=== PATIENT | female | born 1950 | race Caucasian/White ===

== ENCOUNTER 2023-09-18 10:33 | Emergency (ER) | payer OTHER, MEDICARE, SELFPAY ==
[2023-09-18 10:58] VITALS: BP 165/61
--- NOTE | 2023-09-18 12:34 | ED.GENMED ---
History of Present Illness
General
Chief Complaint: Back Pain
Source: patient and spouse
Exam Limitations: none
Time Seen by Provider: 09/18/23 12:03
Nursing documentation reviewed up to this point in time: agreed with
Travel History
Have you had any contact with someone who has COVID-19?: No
Do you have any symptoms of coronavirus? Fever > 100 degrees, chills, cough, shortness of breath, sore throat, loss of taste or smell, muscle aches, or headache?: No
History of Present Illness
History of Present Illness:
73-year-old female with past medical history of hypertension hyperlipidemia diabetes hypothyroidism presenting to the emergency department today with concerns of mainly back discomfort and mild posterior headache after a syncopal episode yesterday
where she stood up very quickly after her fell at home. She normally does not stand up quickly because she does get very lightheaded when she stands up quickly secondary to her medications. She hit her back and the back of her head she
otherwise feels well in that regard but does have ongoing back pain. Denies numbness weakness changes in urination or bowel movements.
Review of Systems
Review of Systems
Allergies reviewed?: Yes
All Other Systems: ROS reviewed and negative except as documented in HPI and ROS
Phy Exam
Physical Exam
Physical Exam:
GENERAL: Alert , in no apparent distress
EYE: pupils equal and reactive
NECK: Supple, no significant adenopathy.
ENT: o/p clr, mmm.
CARDIAC: Regular rate and rhythm .
LUNGS: Clear breath sounds bilaterally, no acute respiratory distress, no wheezes/rales/rhonchi
ABDOMEN: Soft, without focal tenderness, no r/g, no cvat
NEUROLOGICAL: Alert and oriented, no focal neuro deficits
SKIN: Warm and dry, skin intact.
MUSCULOSKELETAL: Mild pain to the right lumbar paraspinal muscles no midline pain no edema, well perfused.
PSYCH: Normal and appropriate interaction.
Course
Orders/Labs/Results
Orders:
Orders
09/18/23 12:23
EKG [Electrocardiogram (*1)] Urgent
Reason for Study: Fatigue / Weakness
CT Head W/o Iv Contrast Urgent
Comment:
Reason For Exam: fall hit head loc
CR Foot - Left Min 3 Views Urgent
Comment:
Reason For Exam: 3-5 toe pain
Lumbar Spine, 2 or 3 View [CR Lumbar Spine 2 Or 3 Views] Urgent
Comment:
Reason For Exam: low back pain
09/18/23 12:24
EKG- Treatment ONCE
09/18/23 12:30
BMP [Basic Metabolic Panel] Urgent
CBC/With Diff [Complete Blood Count/With Diff] Urgent
Urinalysis Reflex To Culture Urgent
Date Specimen was Collected: 09/18/23
Time Specimen was Collected: 12:29
Urine Microscopic Reflex Cult Urgent
09/18/23 13:50
Acetaminophen [Tylenol] 1,000 mg PO NOW STA
Ketorolac [Toradol] 15 mg IV NOW STA
Abnormal Lab Results
09/18/23
12:30
RBC 3.64 L 10^6/uL
(4.20-5.40)
Hct 33.6 L %
(37.0-47.0)
MCH 33.0 H pg
(27.0-31.0)
MPV 11.7 H fL
(7.4-10.4)
Abs Immat Gran (auto) 0.1 H 10^3/uL
(0-0.05)
Absolute Neuts (auto) 8.3 H 10^3/uL
(1.4-6.5)
Absolute Lymphs (auto) 0.9 L 10^3/uL
(1.2-3.4)
Neutrophils % 86.1 H %
(42.2-75.2)
Lymphocytes % 8.8 L %
(20.5-51.1)
Sodium 132 L mmol/L
(135-145)
BUN 27 H mg/dl
(7-17)
Glucose 299 H mg/dl
(70-99)
Leukocyte Esterase Rfl Trace A
(Negative)
Urine Bacteria (Reflex) Few A
(Negative)
Urine Glucose 3+ A
(Negative)
09/18/23 12:30
09/18/23 12:30
Vital Signs
Initial and Last Documented VS:
Initial Vital Signs
Temp Pulse Resp BP Pulse Ox
98.5 F 68 18 165/61 100
09/18/23 10:58 09/18/23 10:58 09/18/23 10:58 09/18/23 10:58 09/18/23 10:58
Last Documented Vital Signs
Temp Pulse Resp BP Pulse Ox
98.5 F 68 18 165/61 100
09/18/23 10:58 09/18/23 10:58 09/18/23 10:58 09/18/23 10:58 09/18/23 10:58
MDM/Problems Addressed
MDM/Problems Addressed:
73-year-old female presenting to the emergency department today with concerns after syncopal episode yesterday where she stood up very quickly and felt lightheaded and passed out she does get this regularly and usually does not stand up this was
immediately after her fell. She is on blood thinners does have some ongoing mild posterior headache and low back pain. Concerning this imaging ordered of the head and back otherwise normal neurologic evaluation no change in bowel or
bladder no abdominal pain no flank pain no CVA tenderness. 30% compression of T12 patient does not have specific discomfort to this area stable for outpatient management of this. Otherwise no significant blood in patient's urine very unlikely to
have a renal injury. Sugar level is elevated but no signs of DKA. Patient was advised of this and will follow-up closely as an outpatient. Otherwise stable for discharge.
*Critical Care Note
Total Time (30-74mins, 75-104mins- exclusive of procedures): Not Applicable
ED Attending Note
-
Portions of this chart may have been created with voice recognition software.� Occasional wrong word or��sound alike� substitutions may have occurred due to the inherent limitations of voice recognition software.
Discharge Plan
Departure
Patient Disposition: Home (Routine Discharge)
Date of Disposition: 09/18/23
Time of Disposition: 14:39
Patient with high blood pressure during this ER visit?: No
Condition: Good
Covid-19: Not Applicable
Discharge Problem:
Syncope, Hyperglycemia, Compression of thoracic vertebra
Instructions: Syncope (Fainting) (DC)
Referrals:
Marin Gonsales MD [Family Provider] -
Activity Restrictions/Additional Instructions:
You came to the emergency department today after a fall. Here you had reassuring evaluation. Please follow closely as an outpatient. Your sugar level was elevated. Please keep a close eye on this moving forward and have a low carbohydrate diet.
Return to the emergency department any worsening, new or concerning symptoms.
Interventions
Interventions:
*Risk Screen - Suicide Last Done: 09/18/23 11:01
*General Assessment Last Done: 09/18/23 11:01
*Neglect/Abuse Screening Last Done: 09/18/23 11:01
ED- Fall Risk Assessment Last Done: 09/18/23 11:48
*ED COVID-19 Vaccine History Last Done: 09/18/23 11:48
ED- Cardiac Assessment Last Done: 09/18/23 11:48
ED-Musculoskeletal Assessment Last Done: 09/18/23 11:48
ED- Neurological Assessment Last Done: 09/18/23 11:48
ED-Skin Assessment Last Done: 09/18/23 11:48
Discharge Date and Time
Print Language: SAMI
[2023-09-18 12:50] LABS: % Basophils 0.1 % (0-2); % Eosinophils 0.1 % (0-6); % Immature Granulocytes 0.5 % (0-0.5); % Lymphocytes 8.8 % (20.5-51.1); % Monocytes 4.4 % (1.7-9.3); % Neutrophils 86.1 % (42.2-75.2); Absolute Immature Granulocytes 0.1 10^3/uL (0-0.05); Absolute Lymphocytes 0.9 10^3/uL (1.2-3.4); Absolute Monocytes 0.4 10^3/uL (0.1-0.6); Absolute Neutrophils 8.3 10^3/uL (1.4-6.5); Hematocrit 33.6 % (37.0-47.0); Mean Corp Hgb Conc. 35.7 g/dL (33.0-37.0); Mean Corpuscular Volume 92.3 fL (81.0-99.0); Mean Platelet Volume 11.7 fL (7.4-10.4); Nucleated Red Blood Cells % 0 %; Platelet Count 153 10^3/uL (130-400); Red Blood Cell Count 3.64 10^6/uL (4.20-5.40); Red Cell Dist. Width 13.8 % (11.5-14.5); White Blood Cell Count 9.7 10^3/uL (4.8-10.8)
[2023-09-18 13:14] LABS: Urine Albumin Negative (Neg - Trace); Urine Bilirubin Negative (Negative); Urine Character Clear (Clear); Urine Color Yellow; Urine Glucose 3+ (Negative); Urine Ketone Negative (Negative); Urine Leukocyte Trace (Negative); Urine Nitrite Negative (Negative); Urine Occult Blood Negative (Negative); Urine Specific Gravity 1.005 (<1.030); Urine Urobilinogen Negative (Neg - 1+)
[2023-09-18 13:17] LABS: Blood Urea Nitrogen 27 mg/dl (7-17); Calcium 9.5 mg/dl (8.4-10.2); Carbon Dioxide 26 mmol/L (22-30); Chloride 103 mmol/L (98-107); Glucose 299 mg/dl (70-99); Sodium 132 mmol/L (135-145); eGFR > 60.00
[2023-09-18 13:59] LABS: Urine Bacteria Few (Negative); Urine Squamous Cell 0-2 /LPF (Few); Urine White Cell 0-2 /HPF (0-5)
[2023-09-18] MEDS: TYLENOL 1000 MG PO (14:03)
[2023-09-18] MEDS: TORADOL 15 MG IV (14:03)
[2023-09-18 14:49] VITALS: BP 133/76
== END 2023-09-18 15:06 | disposition home or self-care (01) ==
LOC: EMR 10:33
PROVIDERS: Physician Assistant; EMERGENCY PHYSICIAN Emergency Medicine; FAMILY PHYSICIAN Internal Medicine
DX: R55 Syncope and collapse (principal); E11.65 Type 2 diabetes mellitus with hyperglycemia; M48.54XA Collapsed vertebra, not elsewhere classified, thoracic region, initial encounter for fracture
CPT/HCPCS: 99285; 96374; 70450; 72100; 73630; 80048; 81003; 81015; 85025; 93005

== ENCOUNTER 2025-03-14 02:48 | Emergency (ER) | payer OTHER, SELFPAY ==
[2025-03-14 02:50] VITALS: BP 181/80
[2025-03-14 02:51] VITALS: BP 182/80
[2025-03-14 03:29] VITALS: BP 138/48
--- NOTE | 2025-03-14 03:40 | ED.GENMED ---
History of Present Illness
General
Chief Complaint: Nose Bleed
Source: patient
Exam Limitations: none
Time Seen by Provider: 03/14/25 02:54
Nursing documentation reviewed up to this point in time: agreed with
History of Present Illness
History of Present Illness:
74-year-old female with past medical history of hypertension, hyperlipidemia, diabetes, hypothyroidism, who presents to the ER today with concerns of acute bleeding from her right nare. She reports that this started shortly upon awakening. She
reports that her is sick with multiple medical issues and she was waking up to go check on him when the nose bleeding started spontaneously. She denies trauma to the area. She reports a few days ago, she had a nosebleed that stopped
spontaneously. She has never required cautery or any procedures for nose bleeding in the past. She denies any falls or head trauma. She denies any lightheadedness or dizziness. She denies any syncopal episodes. She does not take any
anticoagulant medications. Patient reports that the bleeding was so brisk that she called the EMS.
Review of Systems
Review of Systems
All Other Systems: ROS reviewed and negative except as documented in HPI and ROS
Phy Exam
Physical Exam
Physical Exam:
General: Patient is well appearing and in no acute distress; non-toxic.. Vital signs are stable.
Skin: Warm and dry, no rashes or lesions
Head: Normocephalic, atraumatic
Eyes: Sclera non-icteric. EOMs intact.
Cardiac: Regular rate and rhythm, no murmurs
Mouth: Dried blood noted around the oropharynx, no blood in the posterior oropharynx
Nose: Brisk bleeding noted from right anterior nare, minimal bleeding from the left nare, no septal hematoma
Peripheral Vascular: No lower extremity swelling or edema
Pulm: Normal respiratory effort
Neuro: CN II-XII intact, no focal neurologic deficits.
Psychiatric: Appropriate mood and affect.
Course
Vital Signs
Initial and Last Documented VS:
Initial Vital Signs
BP
181/80
03/14/25 02:50
Last Documented Vital Signs
Pulse Resp BP Pulse Ox
82 20 138/48 98
03/14/25 02:51 03/14/25 02:51 03/14/25 03:29 03/14/25 03:40
MDM/Problems Addressed
Differential Diagnosis Includes:
Differentials include anterior epistaxis, posterior epistaxis, abrasion, rhinosinusitis
MDM/Problems Addressed:
74-year-old female presents to the ER today with concerns of bleeding from bilateral nares. It started on the right side and progressed to the left side. Initially, bleeding was controlled with nasal epinephrine and pressure. Bleeding did
continue on reassessment so merocel packing was placed. Patient was observed for extended period of time with no evidence of rebleeding. Patient stable for discharge. Discussed follow-up with ENT and packing removal. Patient stable for discharge.
TSS prophylaxis
*Pulse Oximetry
SaO2: 98
Oxygen Mode of Delivery: Room air
Patient hypoxic: no
*Critical Care Note
Total Time (30-74mins, 75-104mins- exclusive of procedures): Not Applicable
Update Note
Update Note:
4:15 am-- Bleeding remains controlled, patient feeling well. Will continue to observe.
5:15 am-- No bleeding present, patient feeling well, stable for discharge
ED Attending Note
-
Portions of this chart may have been created with voice recognition software.� Occasional wrong word or��sound alike� substitutions may have occurred due to the inherent limitations of voice recognition software.
Discharge Plan
Departure
Patient Disposition: Home (Routine Discharge)
Date of Disposition: 03/14/25
Time of Disposition: 05:19
Patient with high blood pressure during this ER visit?: Yes
Condition: Good
Discharge Problem:
Acute anterior epistaxis
Instructions: Nosebleeds (DC), BLOOD PRESSURE
Prescriptions:
New
cephalexin 250 mg capsule
250 mg PO BID 3 Days Qty: 6 0RF
Referrals:
MARYAM POTTER DO [Family Provider]
Pio Eden MD [Active, Otology] - Call in 1-3 days for appt
Activity Restrictions/Additional Instructions:
Keflex, an antibiotic, has been sent to your pharmacy. Please take one tablet 3 times daily for 3 days.
Please call the attached number to schedule an appointment for follow up with ENT for packing removal 24-48 hours
PLEASE RETURN TO THE ER SHOULD YOU DEVELOP A RETURN OF YOUR BLEEDING, CHEST PAIN, SHORTNESS OF BREATH, VOMITING BLOOD, LIGHTHEADEDNESS, DIZZINESS, LOSS OF CONSCIOUSNESS, OR ANY OTHER SIGNS OR SYMPTOMS WORRISOME TO YOU.
Interventions
Interventions:
*Risk Screen - Suicide Last Done: 03/14/25 02:54
*General Assessment Last Done: 03/14/25 02:54
*Neglect/Abuse Screening Last Done: 03/14/25 02:54
*Nursing Disposition Last Done: 03/14/25 06:16
ED-EENT Assessment Last Done: 03/14/25 03:00
Discharge Date and Time
Discharge Date/Time: 03/14/25 06:17
Print Language: FAROESE
== END 2025-03-14 06:17 | disposition home or self-care (01) ==
LOC: EMR 02:48
PROVIDERS: EMERGENCY PHYSICIAN Student in an Organized Health Care Education/Training Program; FAMILY PHYSICIAN Student in an Organized Health Care Education/Training Program
DX: R04.0 Epistaxis (principal); E11.9 Type 2 diabetes mellitus without complications; I10 Essential (primary) hypertension; E78.5 Hyperlipidemia, unspecified; E03.9 Hypothyroidism, unspecified; Z79.84 Long term (current) use of oral hypoglycemic drugs
CPT/HCPCS: 30901; 99283

== ENCOUNTER 2025-03-14 08:00 | Emergency (ER) | payer OTHER, SELFPAY ==
[2025-03-14 08:00] VITALS: BMI 23.2
[2025-03-14 08:08] VITALS: BP 130/82
--- NOTE | 2025-03-14 08:45 | ED.GENMED ---
History of Present Illness
General
Chief Complaint: Nose Bleed
Source: patient
Exam Limitations: none
Time Seen by Provider: 03/14/25 08:09
Nursing documentation reviewed up to this point in time: agreed with
History of Present Illness
History of Present Illness:
74 yo female, not anticoagulated, DC'd from this ER at 6:15 a.m. (2 hours ago) today and by the time she got home nose was bleeding through both packings, right greater than left nostril. Denies dizziness, CP.
Past History
Past History
ED Past Medical History: HTN, Hypercholesterolemia, NIDDM, Hypothyroidism and Other (pernicious anemia)
ED Past Surgical History: and Orthopedic
Social History
Tobacco: Non-smoker
Alcohol: None
Personal:
Living: with family
Review of Systems
Review of Systems
Allergies reviewed?: Yes
All Other Systems: ROS reviewed and negative except as documented in HPI and ROS
EENT: Reports other (recurrent nose bleed)
Phy Exam
Physical Exam
Physical Exam:
GENERAL: No acute distress. A&Ox3.
CONSTITUTIONAL: Afebrile.
EYES: clear, conjunctivae normal
ENMT: moist mucus membranes, Pharynx nl, blew nose of large amounts of clots, then minimal bleeding. Active bleeding mid to posterior right nasal passage, no active bleeding left nasal passage.
RESPIRATORY: Regular respirations, nonlabored, lungs clear.
CARDIOVASCULAR: Regular rate and rhythm, no murmurs, no rubs.
MUSCULOSKELETAL: Moves with ease. Well perfused.
SKIN: Warm, dry, pink
PSYCH: Normal mood and affect. Well kept, interactive and appropriate
NEUROLOGIC: Awake, alert and oriented. No focal neurological deficits
Course
Vital Signs
Initial and Last Documented VS:
Initial Vital Signs
Temp Pulse Resp BP Pulse Ox
98.4 F 78 18 130/82 98
03/14/25 08:08 03/14/25 08:08 03/14/25 08:08 03/14/25 08:08 03/14/25 08:08
Last Documented Vital Signs
Temp Pulse Resp BP Pulse Ox
98.4 F 78 18 130/82 98
03/14/25 08:08 03/14/25 08:08 03/14/25 08:08 03/14/25 08:08 03/14/25 08:47
Procedures
Nosebleed
Drug treatment: Lidocaine and Epinephrine
Treatment: other (7.5 cm anterior-posterior Epistat with 6 ml air with pt stating pressure but no pain and is comfortable.)
Additional information:
after right nasal passage packed, no further bleeding from left nostril. No bleeding in posterior pharynx.
MDM/Problems Addressed
MDM/Problems Addressed:
74 yo female, not anticoagulated, DC'd from this ER at 6:15 a.m. (2 hours ago) today and by the time she got home nose was bleeding through both packings, right greater than left nostril. Denies dizziness, CP.
Nasal packing applied with good hemostasis, pt tolerated procedure well. Expresses there is no discomfort, just 'pressure' and 'not bad.'
No bleeding from right nostril, no need for packing (previous significant bleeding from right nostril most likely travelled posteriorly to the left nostril).
Daughter called Dr. Eden's office from bedside and made follow-up appointment
9:45 a.m.
No further bleeding
Patient is stable for discharge.
Discharged to care of daughter.
*Pulse Oximetry
SaO2: 98
Oxygen Mode of Delivery: Room air
Patient hypoxic: no
*Critical Care Note
Total Time (30-74mins, 75-104mins- exclusive of procedures): Not Applicable
ED Attending Note
-
Portions of this chart may have been created with voice recognition software.� Occasional wrong word or��sound alike� substitutions may have occurred due to the inherent limitations of voice recognition software.
Discharge Plan
Departure
Patient Disposition: Home (Routine Discharge)
Date of Disposition: 03/14/25
Time of Disposition: 09:46
Patient with high blood pressure during this ER visit?: No
Condition: Good
Discharge Problem:
Epistaxis, recurrent
Instructions: Nosebleeds (DC)
Prescriptions:
No Action
cephalexin 250 mg capsule
250 mg PO BID 3 Days Qty: 6 0RF
Referrals:
MARYAM POTTER, DO [Family Provider]
Pio Eden MD [Active, Otology] - Next open appointment
Activity Restrictions/Additional Instructions:
As we discussed, keep the packing in until you see the ENT doctor. Call today for an appointment sometime within the next few days. Tell them you have a 7.5 cm rapid Rhino packing. Tylenol as needed for discomfort.
Interventions
Interventions:
*Risk Screen - Suicide Last Done: 03/14/25 08:04
*General Assessment Last Done: 03/14/25 09:56
*Neglect/Abuse Screening Last Done: 03/14/25 08:04
*ED COVID-19 Vaccine History Last Done: 03/14/25 08:04
*ED Influenza Vaccine History Last Done: 03/14/25 08:04
*Nursing Disposition Last Done: 03/14/25 09:56
ED-EENT Assessment Last Done: 03/14/25 09:24
Discharge Date and Time
Discharge Date/Time: 03/14/25 09:57
Print Language: TURKMEN
== END 2025-03-14 09:57 | disposition home or self-care (01) ==
LOC: EMR 08:00
PROVIDERS: EMERGENCY PHYSICIAN Student in an Organized Health Care Education/Training Program; FAMILY PHYSICIAN Student in an Organized Health Care Education/Training Program
DX: R04.0 Epistaxis (principal); E11.9 Type 2 diabetes mellitus without complications; I10 Essential (primary) hypertension; E78.00 Pure hypercholesterolemia, unspecified; D51.0 Vitamin B12 deficiency anemia due to intrinsic factor deficiency; E03.9 Hypothyroidism, unspecified; Z79.84 Long term (current) use of oral hypoglycemic drugs
CPT/HCPCS: 99283; 30901

== ENCOUNTER 2025-03-16 05:18 | Emergency (ER) | payer OTHER, SELFPAY ==
[2025-03-16 05:20] VITALS: BP 112/68
--- NOTE | 2025-03-16 06:19 | ED.GENMED ---
History of Present Illness
General
Chief Complaint: Nose Bleed
Source: patient
Exam Limitations: none
Time Seen by Provider: 03/16/25 06:03
Nursing documentation reviewed up to this point in time: agreed with
History of Present Illness
History of Present Illness:
Patient's status post nasal packing 2 days ago inside right naris, returns this morning secondary to recurrent bleeding first on the left side, proceeded by bleeding through the nasal packing on the right side. Patient reports mild lightheadedness
since yesterday. Denies shortness of breath. Denies fever. Denies shortness of breath. Denies nausea or vomiting. Denies loss of appetite. Patient does not take her blood pressure medications. Patient states that her symptoms started 4 days
ago, when she blew her nose, after waking up in the morning with 'dry crusty nose'. Denies previous history of similar symptoms. Denies trauma.
Past History
Past History
ED Past Medical History: HTN, Hypercholesterolemia, NIDDM, Hypothyroidism and Other (pernicious anemia)
ED Past Surgical History: and Orthopedic
Social History
Tobacco: Non-smoker
Alcohol: None
Personal:
Living: with family
Review of Systems
Review of Systems
Allergies reviewed?: Yes
All Other Systems: ROS reviewed and negative except as documented in HPI and ROS
Constitutional: Reports no symptoms; Denies fever
EENT: Reports other (Nosebleed)
Respiratory: Reports no symptoms; Denies trouble breathing
Cardiac: Reports no symptoms
ABD/GI: Reports no symptoms; Denies vomiting
Musculoskeletal: Reports no symptoms
Skin: Reports no symptoms
Neurological: Reports dizzy
Phy Exam
Physical Exam
Physical Exam:
Physical Exam
General: mild distress, not acutely ill. afebrile
Head: nc/at. eomi
Neck: supple. no meningeal signs. normal posterior pharynx. right naris: packing in place, dry. left naris: minimal serosanguineous drainage noted
Heart: s1/s2 regular rate and rhythm
Lungs: no acute respiratory distress. clear bilaterally
Abdomen: normal bowel sounds. not tender.
Neuro: alert and oriented x 3. no focal neurological deficits
Skin: no rash
Psychiatric: well kept. interactive and cooperative
Extremities: no edema. no calf tenderness.
Course
Orders/Labs/Results
Orders:
Orders
03/16/25 06:28
Basic Metabolic Panel Urgent
Complete Blood Count/No Diff Urgent
Ferritin Urgent
Comment: ADD ON
Iron Urgent
Comment: ADD ON
PTT Urgent
Prothrombin Time Urgent
Total Iron Binding Urgent
Comment: ADD ON
03/16/25 06:58
Add On- LAB Urgent
Tests Added?: iron, ferritin, TIBC
03/16/25 07:21
Type+Screen Urgent
Abnormal Lab Results
03/16/25
06:28
RBC 2.89 L 10^6/uL
(4.20-5.40)
Hgb 9.0 L g/dL
(12.0-16.0)
Hct 27.5 L %
(37.0-47.0)
MCH 31.1 H pg
(27.0-31.0)
MCHC 32.7 L g/dL
(33.0-37.0)
RDW 15.3 H %
(11.5-14.5)
MPV 11.1 H fL
(7.4-10.4)
BUN 19 H mg/dl
(7-17)
Glucose 196 H mg/dl
(70-99)
% Saturation 15 L %
(20-50)
03/16/25 06:28
03/16/25 06:28
Vital Signs
Initial and Last Documented VS:
Initial Vital Signs
Temp Pulse Resp BP Pulse Ox
97.9 F 86 16 112/68 97
03/16/25 05:20 03/16/25 05:20 03/16/25 05:20 03/16/25 05:20 03/16/25 05:20
Last Documented Vital Signs
Temp Pulse Resp BP Pulse Ox
97.9 F 78 20 155/53 95
03/16/25 05:20 03/16/25 06:30 03/16/25 06:30 03/16/25 06:30 03/16/25 06:30
MDM/Problems Addressed
MDM/Problems Addressed:
H&H noted.
Patient able to pull up her outpatient blood work which revealed hemoglobin 12.1 in January 14, 2025. Type and screen ordered
Discussed with (ENT) - will re-evaluate the patient in the office upon discharge from ED.
Advised patient to f/u with pmd for repeat blood work in 2-3 wks, as there has been decrease in Hb. Until then, advised resting, minimizing exertional actvities. Pt expressed understanding at time of discharge, to the care of her sister
*Pulse Oximetry
SaO2: 97
Oxygen Mode of Delivery: Room air
Patient hypoxic: no
*Critical Care Note
Total Time (30-74mins, 75-104mins- exclusive of procedures): Not Applicable
ED Attending Note
-
Portions of this chart may have been created with voice recognition software.� Occasional wrong word or��sound alike� substitutions may have occurred due to the inherent limitations of voice recognition software.
Discharge Plan
Departure
Patient Disposition: Home (Routine Discharge)
Date of Disposition: 03/16/25
Time of Disposition: 08:04
Patient with high blood pressure during this ER visit?: Yes
Condition: Fair
Discharge Problem:
Epistaxis, Anemia
Instructions: Nosebleeds (DC), Anemia in adults, possibly from low iron - ED (DC)
Prescriptions:
No Action
cephalexin 250 mg capsule
250 mg PO BID 3 Days Qty: 6 0RF
Referrals:
MARYAM POTTER DO [Family Provider]
Pio Eden MD [Active, Otology]
Activity Restrictions/Additional Instructions:
As discussed, please follow-up with referral to ENT physician upon discharge from ED for reevaluation. In addition, please consider obtaining repeat blood work as an outpatient via your primary care physician, over the next 2 to 3 weeks, to
evaluate for anemia.
Interventions
Interventions:
*Risk Screen - Suicide Last Done: 03/16/25 05:20
*General Assessment Last Done: 03/16/25 05:20
*Neglect/Abuse Screening Last Done: 03/16/25 05:20
*ED- Fall Risk Assessment Last Done: 03/16/25 05:20
*ED COVID-19 Vaccine History Last Done: 03/16/25 05:20
*ED Influenza Vaccine History Last Done: 03/16/25 05:20
*Nursing Disposition Last Done: 03/16/25 08:15
ED-EENT Assessment Last Done: 03/16/25 06:20
Discharge Date and Time
Discharge Date/Time: 03/16/25 08:15
Print Language: HUNGARIAN
[2025-03-16 06:30] VITALS: BP 155/53
[2025-03-16 06:37] LABS: Hematocrit 27.5 % (37.0-47.0); Hemoglobin 9.0 g/dL (12.0-16.0); Mean Corp Hgb Conc. 32.7 g/dL (33.0-37.0); Mean Corpuscular Volume 95.2 fL (81.0-99.0); Platelet Count 200 10^3/uL (130-400); Red Cell Dist. Width 15.3 % (11.5-14.5)
[2025-03-16 06:46] LABS: INR 1.05; PT 14.0 Sec (11.4-14.6)
[2025-03-16 06:48] LABS: APTT 27.5 Sec (23.4-35.0)
[2025-03-16 07:02] LABS: Blood Urea Nitrogen 19 mg/dl (7-17); Calcium 8.9 mg/dl (8.4-10.2); Carbon Dioxide 27 mmol/L (22-30); Chloride 107 mmol/L (98-107); Glucose 196 mg/dl (70-99); Potassium 4.4 mmol/L (3.5-5.1); Sodium 138 mmol/L (135-145); eGFR > 60.00
[2025-03-16 07:19] LABS: Iron 43 ug/dl (37-170)
[2025-03-16 07:28] LABS: Total Iron Binding Capacity 279 ug/dl (265-497)
[2025-03-16 09:25] LABS: Ferritin 94.4 ng/ml (11.1-264.0)
== END 2025-03-16 08:15 | disposition home or self-care (01) ==
LOC: EMR 05:18
PROVIDERS: EMERGENCY PHYSICIAN Emergency Medicine; FAMILY PHYSICIAN Student in an Organized Health Care Education/Training Program
DX: R04.0 Epistaxis (principal); D64.9 Anemia, unspecified; I10 Essential (primary) hypertension; E78.00 Pure hypercholesterolemia, unspecified; E03.9 Hypothyroidism, unspecified; E11.9 Type 2 diabetes mellitus without complications
CPT/HCPCS: 80048; 82728; 83540; 83550; 85027; 85610; 85730; 86850; 86900; 86901; 99282

== ENCOUNTER 2025-03-16 22:11 | Observation (INO) | payer OTHER, SELFPAY ==
[2025-03-16 18:53] VITALS: BP 195/74
[2025-03-16 20:22] VITALS: BP 195/49
--- NOTE | 2025-03-16 20:42 | ED.GENMED ---
History of Present Illness
General
Chief Complaint: Nose Bleed
Source: patient, records and family
Exam Limitations: none
Time Seen by Provider: 03/16/25 20:26
Nursing documentation reviewed up to this point in time: agreed with
History of Present Illness
History of Present Illness:
74-year-old female with past medical history of hypertension, hyperlipidemia, chronic anemia who presents to the ER with her daughter for evaluation of epistaxis. This is patient's fourth visit to the emergency room for this issue. She was
initially seen 2 days ago and had Merisel packing placed with transient hemostasis but returned shortly thereafter with bleeding around the packing and so a Rhino Rocket was placed. She was discharged home and return to the ER this morning because
she was bleeding around the packing and had been having some increased lightheadedness over the weekend. She was found to have a mild drop in her hemoglobin to 9 from a baseline of 12. She was ultimately discharged directly to ENT office and it
sounds like she was in the ENT office on and off all day today with bleeding�initially packing was removed and she says nare was cauterized and another packing was replaced. She then had to return to the ENT office twice for bleeding around packing
today. This evening she went to lay down and again she started having bleeding around the packing from her right nare as well as some bleeding in her left nare. She says she is not swallowing much blood this time. She does have some mild
lightheadedness but no worse than this morning. She is not on any blood thinners. She has notably had markedly elevated blood pressures that she says she is normally on blood pressure medication but had stopped taking it for the past 2 days due to
low blood pressures. When ENT noted elevated blood pressures today patient says she took her normal medicine around 2 PM.
Past History
Past History
ED Past Medical History: HTN, Hypercholesterolemia, NIDDM, Hypothyroidism and Other (pernicious anemia)
ED Past Surgical History: and Orthopedic
Social History
Tobacco: Non-smoker
Alcohol: None
Personal:
Living: with family
Review of Systems
Review of Systems
All Other Systems: ROS reviewed and negative except as documented in HPI and ROS
Constitutional: Denies fever
EENT: Reports other (Epistaxis)
Respiratory: Denies trouble breathing
Cardiac: Denies chest pain
Neurological: Reports dizzy
Phy Exam
Physical Exam
Physical Exam:
General: Awake, alert, oriented x3; no acute distress
Head: Normocephalic, atraumatic
Eyes: Conjunctiva normal
Nose: Packing in place in the right nare with very slight oozing of blood around the corner of the packing; left nare small trickle of bright red blood
Throat: Airway intact, handling secretions, no blood noted in the posterior oropharynx
Neck: Trachea midline, supple without meningismus
Lungs: Breathing comfortably without distress
Heart: Regular rate
Neuro: Grossly intact
Skin: Warm and dry
Extremities: No edema
Scores
Heart Failure Risk
Heart Failure Risk Score: Not Applicable
Heart Score for Chest Pain Patients
STEMI patient?: Not applicable
Withdrawal Assessment of Alcohol
Withdrawal Assessment Completed?: Not applicable
Course
Orders/Labs/Results
Orders:
Orders
03/16/25 20:30
Complete Blood Count/With Diff Urgent
Comprehensive Metabolic Panel Urgent
Prothrombin Time Urgent
03/16/25 20:39
Labetalol HCl [Trandate] 10 mg IV NOW STA
03/16/25 20:40
0.9% Sodium Chloride 1000 ml [Nss] 1,000 ml IV BOLUS
Vital Signs
Initial and Last Documented VS:
Initial Vital Signs
Temp Pulse Resp BP Pulse Ox
36.7 C 94 18 195/74 96
03/16/25 18:53 03/16/25 18:53 03/16/25 18:53 03/16/25 18:53 03/16/25 18:53
Last Documented Vital Signs
Temp Pulse Resp BP Pulse Ox
36.7 C 76 18 195/49 97
03/16/25 18:53 03/16/25 20:22 03/16/25 20:22 03/16/25 20:22 03/16/25 20:23
MDM/Problems Addressed
Differential Diagnosis Includes:
Epistaxis
MDM/Problems Addressed:
74-year-old female returns to the ER with refractory epistaxis from the right nare. This has been associated with severe hypertension. She has a packing in place that was placed by ENT today. Small amount of oozing around the packing but no heavy
bleeding and she is not bleeding posteriorly. Her blood pressure is 195/74, heart rate in the 90s. Suspect that refractory bleeding is at least in part due to uncontrolled blood pressure. Discussed with ENT who recommended leaving packing
untouched given difficulty achieving hemostasis in the office today. Recommended adding drip gauze to help catch slight oozing but that blood pressure control will likely help with hemostasis. Will provide some IV labetalol for hypertension. Will
send labs to trend hemoglobin. Will plan to admit at this point for continued monitoring in the hospital with fourth visit for this issue.
Chronic conditions affecting care:
Hypertension
Acute Exacerbation and/or Progression of Chronic Illness:
Acutely hypertensive managed with labetalol
Acute Exacerbation and/or Progression of Chronic Illness: HTN
*Pulse Oximetry
SaO2: 97
Oxygen Mode of Delivery: Room air
Patient hypoxic: no (97%)
*Critical Care Note
Total Time (30-74mins, 75-104mins- exclusive of procedures): Not Applicable
Data Reviewed
Review of Other/Old Records Reveals: Labs and Records
Source: patient, records and family
Patient Management
Discussion with other providers: Hospitalist (Discussed with hospitalist) and [employer] (Discussed with ENT)
Escalation/DeEscalation of care consider admission/obs:
Admission indicated
ED Attending Note
-
Portions of this chart may have been created with voice recognition software.� Occasional wrong word or��sound alike� substitutions may have occurred due to the inherent limitations of voice recognition software.
Discharge Plan
Departure
Discharge Problem:
Acute anterior epistaxis, Hypertension
Prescriptions:
No Action
cephalexin 250 mg capsule
250 mg PO BID 3 Days Qty: 6 0RF
Referrals:
MARYAM POTTER, DO [Family Provider]
Interventions
Interventions:
*Risk Screen - Suicide Last Done: 03/16/25 18:53
*General Assessment Last Done: 03/16/25 18:53
*Neglect/Abuse Screening Last Done: 03/16/25 20:17
*ED- Fall Risk Assessment Last Done: 03/16/25 20:17
*ED COVID-19 Vaccine History Last Done: 03/16/25 20:17
*ED Influenza Vaccine History Last Done: 03/16/25 20:17
ED-EENT Assessment Last Done: 03/16/25 20:17
Discharge Date and Time
Print Language: LIBYAN
[2025-03-16] MEDS: TRANDATE 10 MG IV (20:49)
[2025-03-16] MEDS: NSS 1000 IV (20:49)
[2025-03-16 21:00] VITALS: BP 178/59
[2025-03-16 21:00] LABS: Hematocrit 28.9 % (37.0-47.0); Hemoglobin 9.4 g/dL (12.0-16.0); Mean Corp Hgb Conc. 32.5 g/dL (33.0-37.0); Mean Corpuscular Volume 98.3 fL (81.0-99.0); Nucleated Red Blood Cells % 0 %; Platelet Count 215 10^3/uL (130-400); Red Cell Dist. Width 15.4 % (11.5-14.5)
[2025-03-16 21:13] LABS: INR 0.99; PT 13.6 Sec (11.4-14.6)
[2025-03-16 21:15] LABS: ALT (SGPT) 21 U/L (0-35); AST (SGOT) 22 U/L (14-36); Albumin 3.5 g/dl (3.5-5.0); Alkaline Phosphatase 56 U/L (38-126); Blood Urea Nitrogen 14 mg/dl (7-17); Calcium 9.2 mg/dl (8.4-10.2); Carbon Dioxide 28 mmol/L (22-30); Chloride 105 mmol/L (98-107); Glucose 214 mg/dl (70-99); Potassium 4.2 mmol/L (3.5-5.1); Sodium 136 mmol/L (135-145); Total Protein 6.2 g/dl (6.3-8.2); eGFR > 60.00
--- NOTE | 2025-03-16 21:18 | HPS.HSE ---
Family Physician
-
Family Physician: MARYAM POTTER DO
Chief Complaint
-
Uncontrolled hypertension, epistaxis
History of Present Illness
This is a 74-year-old female with past medical history significant for NIDDM, hypertension, hld, pernicious anemia, hypothyroidism presents to the emergency department from ENT clinic for ongoing nosebleed.
Patient reported that she has been having epistaxis on the right nares since Friday. She was first seen in the emergency department on Friday and packed. At that time she was found to have a low blood pressure and her antihypertensives were held.
She was told to hold them for 2 days. Over the next 2 days she continued to have epistaxis and return to the emergency department. She responded to the emergency department today and was sent to ENT office. In the office she had cauterization
twice and packing. She was sent home and then returned again with continued nosebleed. She was packed again and then sent to the emergency department to be evaluated given elevated blood pressure and thought that her blood pressure was
contributing to the epistaxis.
Denies history of nsaid use. No thinners.
In the ED blood pressure was 195/50 with a pulse of 82 and she was satting 97% on room air. She was afebrile. White count was 10, hemoglobin 9.4 and platelet of 215. Electrolytes BUN and creatinine were normal.
Medical History
Past Medical History
Past Medical History: Reports HTN, Hypercholesterolemia, NIDDM and Other (anemia)
Past Surgical History: Reports Other
Social History
Alcohol: None
Drug: None
Family History
Family History: Not pertinent
Allergies / Home Medications
Allergies reflects when Allergies were last updated in [employer].
Home Medications with original date entered in [employer]
Allergy/Medication List:
Allergies
Allergy/AdvReac Type Severity Reaction Status Date / Time
orange (food color) Allergy Intermediate Hives Verified 03/16/25 18:53
Penicillins Allergy Mild Rash Verified 03/16/25 18:53
adhesive tape Allergy Rash Verified 03/16/25 18:53
levofloxacin Allergy Rash Verified 03/16/25 18:53
nitrofurantoin (From Allergy Rash Verified 03/16/25 18:53
Macrobid)
erythromycin base AdvReac Intermediate Nausea / Verified 03/16/25 18:53
Vomiting
Home Medications
cephalexin 250 mg capsule 250 mg PO BID 3 days #6 caps 03/14/25
Review of Systems
-
Constitutional: Reports No Symptoms
EENT: Reports Other (Nosebleed)
Respiratory: Reports No Symptoms
Cardiac: Reports No Symptoms
Abdomen/GI: Reports No Symptoms
: Reports No Symptoms
Musculoskeletal: Reports No Symptoms
Skin: Reports No Symptoms
Neurological: Reports No Symptoms
Endocrine: Reports No Symptoms
Hematologic/Lymphatic: Reports No Symptoms
Psych: Reports No Symptoms
Physical Exam
Vital Signs
Vital Signs
Temp Pulse Resp BP Pulse Ox
98.0 F 82 18 195/49 97
03/16/25 18:53 03/16/25 20:49 03/16/25 20:22 03/16/25 20:49 03/16/25 20:49
Physical Exam
General: Well Developed, Well Nourished and No Apparent Distress
HEENT: NormoCephalic, Moist mucous membranes, Atraumatic and PERRLA; No Nose Appears Normal (Cotton packing in the right nares with tape gauze at the opening.)
Respiratory: Clear
Cardiac: S1/S2 and Regular Rhythm; No Murmur or Rub
GI: Soft, Non Tender, Non Distended and Normal Bowel Sounds; No Organomegaly
Rectal: Deferred by Provider
Musculoskeletal: No Clubbing, No Cyanosis and No Edema
Skin: No Rash
Neuro: Nonfocal/grossly intact
Laboratory Results
-
03/16/25 20:54
03/16/25 20:54
Laboratory Results
Total Bilirubin 0.5 mg/dl (0.2-1.3) 03/16/25 20:54
AST 22 U/L (14-36) 03/16/25 20:54
ALT 21 U/L (0-35) 03/16/25 20:54
Alkaline Phosphatase 56 U/L (38-126) 03/16/25 20:54
Impression/Plan
-
IMPRESSION:
71-year-old with past medical history of hypertension, hypothyroid, hyperlipidemia and kzc-boglauj-rwayfxrjs diabetes who presented to the emergency department with recurrent epistaxis. Hemoglobin relatively stable. She is currently packed and no
bleeding after cauterization x 2 in the ENT office. Sent to the emergency department for monitoring of blood pressure control.
PLAN:
Hypertension -patient with chronic hypertension. She did stop taking her medications for 2 days due to reports of low blood pressure in the ED 2 days ago. Blood pressure currently almost 200s systolic but improved with labetalol.
-Admit to telemetry
-Labetalol IV as needed
-Will give valsartan 320 at bedtime now
-Continue Nebivolol 5 mg daily
Epistaxis -currently no active bleed,
- Keep head of bed elevated at 30
-Keep the current nasal packing
-ENT consult, will see in a.m.
-Continue prophylaxis cephalexin
Diabetes
-Continue glyburide
-Sliding scale insulin low-dose
-Continue sitagliptin
DVT prophylaxis�SCDs
CODE STATUS�full code
[2025-03-16 22:00] VITALS: BP 176/50
[2025-03-16] MEDS: DIOVAN 320 MG PO (22:07)
[2025-03-16 23:00] VITALS: BP 187/57
[2025-03-16 23:40] VITALS: BP 128/78; BMI 23.7
[2025-03-17] MEDS: TYLENOL 650 MG PO ×2 (01:52→10:55)
[2025-03-17 03:58] VITALS: BP 140/54
[2025-03-17] MEDS: SYNTHROID 88 MCG PO (07:00)
[2025-03-17 07:15] VITALS: BP 158/63
[2025-03-17 07:33] LABS: Glucose - Point of Care 149 mg/dl (70-99)
--- NOTE | 2025-03-17 08:16 | W.PN.ENT ---
Today's Communication
-
seen at bedside
Impression / Plan
-
keep packing in place
OK for discharge from ENT standpoint
will see tomorrow for ?packing removal
Subjective Data
-
no active bleeding
blood pressure under better control
Objective Data
-
Vital Signs
Temp Pulse Resp BP Pulse Ox
98.7 F 80 18 140/54 96
03/17/25 03:58 03/17/25 03:58 03/17/25 03:58 03/17/25 03:58 03/17/25 03:58
Lab Results
03/16/25 20:54
PT 13.6 Sec (11.4-14.6) 03/16/25 20:54
INR 0.99 03/16/25 20:54
Calcium 9.2 mg/dl (8.4-10.2) 03/16/25 20:54
Total Bilirubin 0.5 mg/dl (0.2-1.3) 03/16/25 20:54
AST 22 U/L (14-36) 03/16/25 20:54
ALT 21 U/L (0-35) 03/16/25 20:54
Alkaline Phosphatase 56 U/L (38-126) 03/16/25 20:54
Physical Exam
-
packing in place
no active bleeding
Data Reviewed
-
Radiology Results: Report Reviewed
[2025-03-17 08:45] LABS: Hematocrit 26.7 % (37.0-47.0); Hemoglobin 8.9 g/dL (12.0-16.0); Mean Corp Hgb Conc. 33.3 g/dL (33.0-37.0); Mean Corpuscular Volume 98.5 fL (81.0-99.0); Platelet Count 211 10^3/uL (130-400); Red Cell Dist. Width 15.7 % (11.5-14.5)
[2025-03-17 09:03] LABS: Iron 48 ug/dl (37-170)
[2025-03-17 09:12] LABS: Total Iron Binding Capacity 261 ug/dl (265-497)
[2025-03-17] MEDS: PROCARDIA XL (EXTENDED RELEASE) 30 MG PO (09:20)
[2025-03-17] MEDS: EVISTA 60 MG PO (09:21)
[2025-03-17] MEDS: BYSTOLIC 5 MG PO (09:21)
[2025-03-17] MEDS: JANUVIA 100 MG PO (09:21)
[2025-03-17] MEDS: MICRONASE 5 MG PO (09:22)
[2025-03-17] MEDS: KEFLEX 250 MG PO (09:22)
--- NOTE | 2025-03-17 10:10 | W.PN.HOSP.TC ---
Today's Communication/Plan
-
dc
Assessment / Plan
Assessment / Plan
74yo F with PMHx of DM, HTN, hypothyroidism, atopic d/o, anxiety, Hx of breast CA on Raloxifene, perniscious anemia sent from ENT office after cauterisation done for recurrent epistaxis. Concern for uncontrolled HTN playing the role. BP better
controlled with addition of Nifedipine and further medciation titration will be done by PCP. ENT reevaluated and agreeable with d/c to remove packing next day in the office. Iron given for GIORGI and patient to follow with PCP for further anemia w/u.
Patient is not on anticoagulant or antiplatelet at home. Medcially stable for d/c home
A/P
#Epistaxis
#Acute blood loss anemia
#GIORGI
ENT folows
Hgb stable
IV iron given
#Essential HTN
added nifedipine
further BP titration as per PCP
Ambulatory BP monitoring advised
#DM type 2 with unspecified complication
Accuchecks, Insulin SS, DM diet
#Hx of breast CA
#HLD
#Hypothyroidism
#Atopic d/o
#Anxiety d/o
cont home meds
DVT ppx SCDs
full code
I have spent at least 56min reviewing chart, test results, communication with consultants and providing direct patient care
Anticipated Discharge: Today
Subjective/Interval History
-
Date of Service: March 17, 2025
Objective Data
-
Labs:
Laboratory Results
03/17/25
07:41
WBC 8.2
Hgb 8.9 L
Hct 26.7 L
Plt Count 211
Vital Signs:
Vital Signs
Temp Pulse Resp BP Pulse Ox
98.1 F 80 16 158/63 97
03/17/25 07:15 03/17/25 09:20 03/17/25 07:15 03/17/25 09:20 03/17/25 07:15
Review of Systems
-
History Source: Patient
All other systems: Reviewed and negative
Physical Exam
-
General: No Apparent Distress
HEENT: Normocephalic
Respiratory: Clear to Auscultation
Cardiac: Regular Rhythm
GI: Soft, Nontender and Nondistended
Neuro: Awake, Alert, Oriented and AO x 3
Psych: Calm
--- NOTE | 2025-03-17 10:15 | W.DCSUMMARY ---
Discharge Summary
Discharge Data
Date of Admission: 03/16/25
Date of Discharge: 03/17/25
-
Pending Results: Yes
Additional Pending Results:
b12, folate
Hospital Course
74yo F with PMHx of DM, HTN, hypothyroidism, atopic d/o, anxiety, Hx of breast CA on Raloxifene, perniscious anemia sent from ENT office after cauterisation done for recurrent epistaxis. Concern for uncontrolled HTN playing the role. BP better
controlled with addition of Nifedipine and further medciation titration will be done by PCP. ENT reevaluated and agreeable with d/c to remove packing next day in the office. Iron given for GIORGI and patient to follow with PCP for further anemia w/u.
Patient is not on anticoagulant or antiplatelet at home. Medcially stable for d/c home
I have spent at least 56min reviewing chart, test results, communication with consultants and providing direct patient care
Patient was managed for
#Epistaxis
#Acute blood loss anemia
#GIORGI
#Essential HTN
#DM type 2 with unspecified complication
#Hx of breast CA
#HLD
#Hypothyroidism
#Atopic d/o
#Anxiety d/o
Discharge Plan
-
Patient Disposition: Home (Routine Discharge)
Discharge Diagnosis/Procedures: epistaxis
Diet: Diabetic, Carb Controlled
Activity: As tolerated
Referrals:
MARYAM POTTER, DO [Family Provider] - in less than 1 week
Referral Note: anemia w/u
Pio Eden MD [Active, Otology] - in one day
Prescriptions:
New
ferrous sulfate 325 mg (65 mg iron) tablet,delayed release (DR/EC)
325 mg PO DAILY Qty: 30 0RF
sennosides-docusate sodium [Senna-S] 8.6-50 mg tablet
1 tab-cap PO BIDPRN PRN (Reason: Constipation) Qty: 30 0RF
Continued
cephalexin 250 mg capsule
250 mg PO BID 3 Days Qty: 6 0RF
buspirone 5 mg tablet
5 mg PO BID
glyburide 5 mg tablet
5 mg PO BID
levothyroxine 88 mcg tablet
88 mcg PO DAILY
valsartan 320 mg tablet
320 mg PO DAILY
raloxifene 60 mg tablet
60 mg PO DAILY
lovastatin 20 mg tablet
20 mg PO DAILY
cyclobenzaprine 5 mg tablet
5 mg PO TID
Januvia 100 mg tablet
PO DAILY
levocetirizine 5 mg tablet
5 mg PO HS
nebivolol 5 mg tablet
5 mg PO DAILY
Discharge Date and Time
Print Language: MALTESE
[2025-03-17 10:40] LABS: Ferritin 89.7 ng/ml (11.1-264.0)
[2025-03-17 11:10] VITALS: BP 121/45
[2025-03-17 11:29] LABS: Folate > 20.0 ng/ml (2.76-20)
--- NOTE | 2025-03-17 11:32 | CM ---
CM reviewed chart, patient seen bedside, for d.c today.
Patient resides with her spouse in a multiple level home, no steps to enter.
Patient reports having a stair climber at home, multiple walkers, canes, shower chair, bars in bathroom.
Patient denies VN/SNF.
PCP confirmed Venita Colindres, pharmacy [facility] form verbally reviewed, provided with copy, placed in chart.
Patient confirms transportation home from sister upon d/c
Plan; home no needs.
[2025-03-17 11:49] LABS: Glucose - Point of Care 289 mg/dl (70-99)
--- NOTE | 2025-03-17 12:25 | CON.MD ---
Consultation - Medical
-
Chief complaint: Epistaxis
History of present illness: This patient is a 74-year-old woman with a history of hypertension who experienced nosebleeds which were severe on the right side requiring packing in the emergency room. She experienced rebleeding a couple of days later
and her nose was repacked in the office yesterday. She presented for follow-up a little bit later with further bleeding of the nose was further packed. The patient experience further bleeding and was noted to have very high blood pressure. She
had been told earlier in the week to stop her blood pressure medication because her blood pressure was low but in the office her blood pressure showed a diastolic at about 190. She experienced further bleeding after going home even though she took
her blood pressure medications. She was admitted to [facility] for observation and control of blood pressure. Her blood pressure is better this morning.
Past medical history:
Allergies: Adhesive tape causes rash, erythromycin base causes nausea and vomiting, levofloxacin causes rash, nitrofurantoin causes rash, orange food color causes hives, penicillins cause rash,
Illnesses: Hypertension and acute anterior epistaxis
Hospitalizations: The patient is currently hospitalized for epistaxis and hypertensive crisis.
Family history: Asked and is noncontributory for this problem although her sister had a severe nosebleed after nasal surgery.
Past surgical history. The patient has not had prior nasal surgery
Review of systems: Positive for right sided epistaxis, positive for a little bit of bleeding on the left side. Negative for nasal trauma, positive for history of hypertension
Physical examination:
Head: Atraumatic and normocephalic
Eyes: Extraocular movements are intact and pupils are equal and reactive to light,
Nose: There is a Merocel sponge in her right nose without active bleeding. No bleeding is noted from the left side
Oral cavity/oropharynx: No blood noted. Normal examination
Ears: Normal to examination bilaterally
Hypopharynx and larynx: Normal to examination
Cranial nerves: 2 through 12 are intact
Gland: Normal to examination
Salivary glands: Normal to examination
Voice: Normal volume and tone
Assessment/plan: This 74-year-old woman has recurrent epistaxis from the right side. Her nose was packed with a Merocel sponge but because of [id number] blood pressure she experienced further bleeding and required admission to [place]
[facility] last evening. Her blood pressure is now under better control. She can expect a little oozing of blood from her nose over the next couple of days but this should stop completely over time. I would like to see her back in the office
tomorrow to remove the small pack she has anteriorly. I tentatively plan to keep the packing in her right nose until Friday. She may be discharged today from my standpoint.
Consultation
-
Date/Time Consultation Requested: 03/17/2025 6am
Date/Time Consultation Performed: 03/17/2025 8am
Requesting Provider:
Performing Provider: Karey
Reason for Consultation: epistaxis
[2025-03-17] MEDS: FERRLECIT 110 MG IV (13:16)
[2025-03-17 14:09] LABS: Glucose - Point of Care 226 mg/dl (70-99)
[2025-03-17 14:20] LABS: Vitamin B12 644 pg/ml (239-931)
[2025-03-17 16:07] LABS: Glucose - Point of Care 255 mg/dl (70-99)
== END 2025-03-17 16:49 | disposition home or self-care (01) ==
LOC: 4 EAST ACU 22:11
PROVIDERS: ADMITTING PHYSICIAN Internal Medicine; ATTENDING PHYSICIAN Internal Medicine; CONSULT PHYSICIAN Otolaryngology Facial Plastic Surgery; EMERGENCY PHYSICIAN Emergency Medicine; FAMILY PHYSICIAN Student in an Organized Health Care Education/Training Program
DX: R04.0 Epistaxis (principal); I16.9 Hypertensive crisis, unspecified; I10 Essential (primary) hypertension; E78.00 Pure hypercholesterolemia, unspecified; E11.9 Type 2 diabetes mellitus without complications; D62 Acute posthemorrhagic anemia; Z85.3 Personal history of malignant neoplasm of breast; E03.9 Hypothyroidism, unspecified; F41.9 Anxiety disorder, unspecified; Z79.84 Long term (current) use of oral hypoglycemic drugs; Z79.899 Other long term (current) drug therapy
CPT/HCPCS: 80048; 80053; 82607; 82728; 82746; 82962; 83540; 83550; 85025; 85027; 85610; 85730; 86850; 86900; 86901; 96361; 96374; 99285; G0378; J2916

== ENCOUNTER 2025-03-25 20:28 | Emergency (ER) | payer OTHER, SELFPAY ==
[2025-03-25 20:29] VITALS: BP 118/64
--- NOTE | 2025-03-25 22:14 | ED.GENMED ---
History of Present Illness
General
Chief Complaint: Nose Bleed
Source: patient
Exam Limitations: none
Time Seen by Provider: 03/25/25 21:55
History of Present Illness
History of Present Illness:
See MDM
Past History
Past History
ED Past Medical History: HTN, Hypercholesterolemia, NIDDM, Hypothyroidism and Other (pernicious anemia)
ED Past Surgical History: and Orthopedic
Social History
Tobacco: Non-smoker
Alcohol: None
Personal:
Living: with family
Phy Exam
Physical Exam
Physical Exam:
See MDM
Course
Vital Signs
Initial and Last Documented VS:
Initial Vital Signs
Temp Pulse Resp BP Pulse Ox
98.0 F 70 20 118/64 98
03/25/25 20:29 03/25/25 20:29 03/25/25 20:29 03/25/25 20:29 03/25/25 20:29
Last Documented Vital Signs
Temp Pulse Resp BP Pulse Ox
98.0 F 70 20 118/64 98
03/25/25 20:29 03/25/25 20:29 03/25/25 20:29 03/25/25 20:29 03/25/25 20:29
Procedures
Nosebleed
Drug treatment: none
Treatment: other (Gelfoam)
Post treatment bleeding: none- good control
MDM/Problems Addressed
Differential Diagnosis Includes:
Note:
CHIEF COMPLAINT(S)
Epistaxis (nosebleed)
HISTORY OF PRESENT ILLNESS
The patient is a 74-year-old female with a history of recurrent epistaxis. She reported having nosebleeds beginning on Friday, for which she has visited the Emergency Department twice and seen an Ear, Nose, and Throat (ENT) specialist three
times. The ENT made attempts to manage her condition by packing her nose multiple times and cauterizing two different areas in her nose. After initial treatment, the patient experienced another bleed while driving, necessitating additional visits to
the ENT and re-admission. Recently, the patient started experiencing sinus drainage containing dry blood, followed by another significant nosebleed. The care team noted that the area previously bleeding currently has a scab and is not actively
bleeding. The patient is concerned about recurrent bleeding and mentions having a disabled , indicating the need to return home.
PHYSICAL EXAM
General: Alert, no acute distress.
Skin: Warm, dry.
Head: Normocephalic, atraumatic
Neck: Appears supple, trachea midline.
Eyes, Ears, Nose, Mouth, and Throat: Moist mucous membranes. Clots noted to right posterior nare. No active bleeding
Cardiovascular: No signs of cyanosis
Respiratory: Respirations are non-labored.
Abdomen: Non-distended
Musculoskeletal: No deformities
Neurological: No focal neurological deficit observed.
Psychiatric: Cooperative, appropriate mood and affect.
PLAN
The plan involves inserting a small piece of gauze soaked in a clotting agent into the nasal cavity to promote clotting and prevent further bleeding. This is considered less uncomfortable than balloon packing.
DIFFERENTIAL DIAGNOSIS
- The Differential Diagnosis includes, in no particular order and is not limited to:
- Anterior epistaxis
- Posterior epistaxis
- Nasal trauma
- Hypertension-related epistaxis
- Cocaine use
- Nasal polyps
- Sinusitis
- Hereditary hemorrhagic telangiectasia
- Coagulopathy
- Nasal tumor
SUMMARY OF ENCOUNTER
The patient visited the Emergency Department due to recurrent episodes of nosebleeds despite previous interventions, including nasal packing and cauterization. Examination showed no active bleed but displayed irritation and scarring. A decision was
made to place a clot-promoting gauze into the nasal cavity to minimize future bleeding risks.
DISPOSITION
Discharge
PATIENT EDUCATION AND COUNSELING
The patient was advised about the cause of her nosebleeds possibly being dry mucous membranes leading to vessel exposure. She was counseled to use nasal moisturizers, such as a small amount of Vaseline, particularly in dry and seasonal changes, to
prevent recurrence.
FOLLOW-UP INSTRUCTIONS
The patient was instructed to call the ENT�s office the next morning, or speak to the on-call doctor over the weekend to discuss further evaluation and management. She was advised to follow up with the ENT for reevaluation of the nasal packing and
any potential removal as necessary.
MEDICAL DECISION MAKING
-Complexity of Data Reviewed: Chronic conditions affecting care were not discussed.
-Data:
- Category 1:
- No tests or external records were reviewed.
- Category 2:
- No specific mention of external historians.
- Category 3:
- No discussion of management with other healthcare providers was noted.
-Risk:
- Prescription medication was prescribed: None.
- Consideration of Admission/Observation: The patient is deemed safe for outpatient management with close follow-up.
- Care significantly affected by Social Determinants of Health: The patients is disabled, and the patient requires her friends assistance for transportation.
DIAGNOSIS
- Epistaxis (ICD-10 Code: R04.0)
- Recurrent nasal bleeding due to dry mucous membranes (ICD-10 Code: J34.89)
SUMMARY OF ENCOUNTER
The patient presented to the emergency department with recurrent nosebleeds on the right side. She had previously been seen by an Ear, Nose, and Throat (ENT) specialist multiple times and had undergone cauterization. Upon examination, the patient
had placed her own cotton ball packing, which, when removed, revealed small clots but no active bleeding. A small amount of Gelfoam was placed in the area to promote clotting. The patient was instructed to follow up with the ENT.
PLAN
The plan is to have the patient follow up with her ENT specialist for further management and evaluation.
PATIENT EDUCATION AND COUNSELING
The patient was informed about the management of her recurrent nosebleeds and the importance of follow-up with the ENT specialist.
FOLLOW-UP INSTRUCTIONS
The patient was advised to follow up with the ENT specialist for reevaluation and further management.
MEDICATION RECONCILIATION
No medication was administered or prescribed during this visit.
MEDICAL DECISION MAKING
-Complexity of Data Reviewed: Chronic conditions affecting care include recurrent epistaxis. Differential diagnosis includes anterior epistaxis, posterior epistaxis, nasal trauma, hypertension-related epistaxis, cocaine use, nasal polyps, sinusitis,
hereditary hemorrhagic telangiectasia, coagulopathy, and nasal tumor.
Category 1: The presence of clots and absence of active bleeding was noted upon examination.
Category 3: Disposition made in alignment with outpatient ENT follow-up as the patient was comfortable with this plan.
DIAGNOSIS
Epistaxis, unspecified (ICD-10 Code: R04.0). Consideration of recurrent nasal bleeding due to dry mucous membranes (ICD-10 Code: J34.89).
*Pulse Oximetry
SaO2: 98
Oxygen Mode of Delivery: Room air
Patient hypoxic: no
*Critical Care Note
Total Time (30-74mins, 75-104mins- exclusive of procedures): Not Applicable
ED Attending Note
-
Portions of this chart may have been created with voice recognition software.� Occasional wrong word or��sound alike� substitutions may have occurred due to the inherent limitations of voice recognition software.
Discharge Plan
Departure
Patient Disposition: Home (Routine Discharge)
Date of Disposition: 03/25/25
Time of Disposition: 22:21
Patient with high blood pressure during this ER visit?: No
Discharge Problem:
Acute anterior epistaxis
Instructions: Nosebleeds (DC)
Prescriptions:
No Action
cephalexin 250 mg capsule
250 mg PO BID 3 Days Qty: 6 0RF
buspirone 5 mg tablet
5 mg PO BID
glyburide 5 mg tablet
5 mg PO BID
levothyroxine 88 mcg tablet
88 mcg PO DAILY
valsartan 320 mg tablet
320 mg PO DAILY
raloxifene 60 mg tablet
60 mg PO DAILY
lovastatin 20 mg tablet
20 mg PO DAILY
cyclobenzaprine 5 mg tablet
5 mg PO TID
Januvia 100 mg tablet
PO DAILY
levocetirizine 5 mg tablet
5 mg PO HS
nebivolol 5 mg tablet
5 mg PO DAILY
ferrous sulfate 325 mg (65 mg iron) tablet,delayed release (DR/EC)
325 mg PO DAILY Qty: 30 0RF
sennosides-docusate sodium [Senna-S] 8.6-50 mg tablet
1 tab-cap PO BIDPRN PRN (Reason: Constipation) Qty: 30 0RF
Referrals:
MARYAM POTTER DO [Family Provider]
Activity Restrictions/Additional Instructions:
Please return for any worsening symptoms.
You may return at any time if you have further concerns.
Please call the on-call ENT tomorrow to set up an expedited appointment. Please let them know that I placed Gelfoam in your nose
Thank you for choosing [facility].
Interventions
Interventions:
*Risk Screen - Suicide Last Done: 03/25/25 21:51
*General Assessment Last Done: 03/25/25 20:29
*Neglect/Abuse Screening Last Done: 03/25/25 21:51
*ED- Fall Risk Assessment Last Done: 03/25/25 21:51
ED-EENT Assessment Last Done: 03/25/25 21:51
Discharge Date and Time
Print Language: HEBREW
== END 2025-03-25 22:35 | disposition home or self-care (01) ==
LOC: EMR 20:28
PROVIDERS: EMERGENCY PHYSICIAN Student in an Organized Health Care Education/Training Program; FAMILY PHYSICIAN Student in an Organized Health Care Education/Training Program
DX: R04.0 Epistaxis (principal); I10 Essential (primary) hypertension; E78.00 Pure hypercholesterolemia, unspecified; E11.9 Type 2 diabetes mellitus without complications; E03.9 Hypothyroidism, unspecified
CPT/HCPCS: 99282; 29125; 99283